=== PATIENT | male | born 1985 | race Two or more races ===

== ENCOUNTER 2018-04-03 18:24 | Emergency (ER) | payer OTHER ==
[~2018-04-03] VITALS: Ht 157.5 cm; Wt 68.0 kg
[2018-04-03 19:15] VITALS: BP 123/74
[2018-04-03] MEDS ORDERED: IBUP-1007 PO (19:34)
--- NOTE | 2018-04-03 19:34 | PHYS DOC ---
Adult General Chief Complaint Chief Complaint: LACERATION/AVULSION HPI HPI Patient is a 32 year old M who was cutting meat and cut his L hand. He has full ROM and states his tetanus shot was a year ago. Review of Systems Review of Systems Constitutional: Denies fever or chills Respiratory: Denies cough or shortness of breath Cardiovascular: Denies chest pain. GI: Denies abdominal pain, nausea, vomiting, bloody stools or diarrhea Musculoskeletal: Denies back pain or joint pain. Reports L hand pain. Integument: Denies rash. Reports skin laceration. Neurologic: Denies headache, focal weakness or sensory changes All other systems were reviewed and found to be within normal limits, except as documented in this note. Physical Exam Physical Exam Constitutional: Well developed, well nourished, no acute distress, non-toxic appearance. Neck: Normal range of motion, no tenderness, supple, no stridor. Cardiovascular:Heart rate regular rhythm, no murmur Lungs & Thorax: Bilateral breath sounds clear to auscultation Abdomen: Bowel sounds normal, soft, no tenderness, no masses, no pulsatile masses. Skin: 2cm superficial laceration to L dorsal hand, cap refill is normal, skin color of distal finger is normal Back: No tenderness, no CVA tenderness. Extremities: No tenderness, no cyanosis, no clubbing. ROM of L fingers and hand are fully intact. Neurologic: Alert and oriented X 3, normal motor function, normal sensory function, no focal deficits noted. Psychologic: Affect normal, judgement normal, mood normal. Current Patient Data Vital Signs Vital Signs Date Time Temp Pulse Resp B/P (MAP) Pulse Ox O2 Delivery O2 Flow Rate FiO2 04/03/18 19:15 98.5 63 18 123/74 (90) 98 Room Air 98.5 EKG EKG [] Radiology/Procedures Radiology/Procedures [] Course & Med Decision Making Course & Med Decision Making Pertinent Labs and Imaging studies reviewed. (See chart for details) Wound closed with Skinafix adhesive, and then bandaged. Pt tolerated well. Instructed on wound care and to monitor for infection. Dragon Disclaimer Dragon Disclaimer This electronic medical record was generated, in whole or in part, using a voice recognition dictation system. Laceration/Wound Repair Laceration/Wound Repair : Wound Location: upper extremity Wound's Depth, Shape: superficial Wound Explored: clean Irrigated w/ Saline (ccs): 50 Betadine Prep?: Yes Wound Repaired With: Dermabond Layer Closure?: No Sterile Dressing Applied?: Yes Departure Departure Impression: Primary Impression: Laceration of hand Additional Impression: Glued skin wound Disposition: HOME, SELF-CARE Condition: IMPROVED Referrals: NO PCP (PCP) Patient Instructions: Stitches, Blaine or Skin Adhesive Strips, [id number] Additional Instructions: The glue will disintegrate in a few days. Keep wound clean and dry and follow up with primary doctor for wound recheck. Scripts Ibuprofen (IBUPROFEN) 600 Mg Tablet 600 MG PO PRN Q6HRS PRN for INFLAMMATION for 7 Days, #20 TAB Prov: JING VO 04/03/18 Attending Signature Attending Signature I have reviewed the PA/CARPENTER'S ASSISTANT's note and plan of care. I was available for consultation as needed during the patient's visit in the emergency department. I agree with the clinical impression, plan, and disposition. Problem Qualifiers JING VO Apr 03, 2018 19:34 DOMINIQUE NUNEZ DO Apr 09, 2018 05:52
== END 2018-04-03 19:44 | disposition home or self-care (01) ==
LOC: ER 18:24
DX: S61.412A Laceration without foreign body of left hand, initial encounter (principal); Y28.8XXA Contact with other sharp object, undetermined intent, initial encounter; Y93.89 Activity, other specified; Y92.89 Other specified places as the place of occurrence of the external cause; Y99.8 Other external cause status
CPT/HCPCS: 12001; 99283-25